=== PATIENT | female | born 1975 | race Caucasian/White ===

== ENCOUNTER 2022-06-26 17:22 | Emergency (ER) | payer OTHER ==
[~2022-06-26] VITALS: Ht 188 cm; Wt 104.3 kg
[~2022-06-26 17:22] MED LIST: HYDACE5 PO; IBUP800 PO; RXHYDACE PO
[2022-06-26] MEDS ORDERED: MECL25 (17:57)
[2022-06-26] MEDS ORDERED: IBUP600 PO (17:57)
[2022-06-26] MEDS ORDERED: CEPH500 PO (20:36)
== END 2022-06-26 20:56 | disposition home or self-care (01) ==
LOC: ER 17:22
DX: L02.11 Cutaneous abscess of neck (principal); Z88.5 Allergy status to narcotic agent; Z91.040 Latex allergy status; Z91.014 Allergy to mammalian meats; Z79.899 Other long term (current) drug therapy
CPT/HCPCS: 36415; 70491; A9270; Q9967

== ENCOUNTER 2022-06-30 10:38 | Emergency (ER) | payer OTHER ==
[~2022-06-30] VITALS: Ht 182.9 cm; Wt 104.3 kg
[~2022-06-30 10:38] MED LIST changes: +CEPH500 PO; +IBUP600 PO; +MECL25
[2022-06-30 13:33] LABS: BASOPHILS ABSOLUTE AUTO 0.04 K/mm3 (0.00-0.23); BASOPHILS PERCENT AUTO 0 % (0-2); EOSINOPHILS ABSOLUTE AUTO 0.34 K/mm3 (0.00-0.68); EOSINOPHILS PERCENT AUTO 3 % (0-6); Hematocrit 39.5 % (33.0-51.0); Hemoglobin 13.5 g/dL (11.5-16.0); IMMATURE GRAN ABSOLUTE AUTO 0.05 K/mm3 (0.00-0.10); IMMATURE GRAN PERCENT AUTO 1 % (0-1); LYMPHOCYTES PERCENT AUTO 13 % (21-46); MONOCYTES ABSOLUTE AUTO 0.84 K/mm3 (0.16-1.47); MONOCYTES PERCENT AUTO 8 % (4-13); Mean Corpuscular HGB Conc 34.2 g/dL (31.5-36.5); Mean Corpuscular Volume 91 fL (80-100); Mean Platelet Volume 9.5 fL (9.1-12.4); NEUTROPHILS ABSOLUTE AUTO 8.09 K/mm3 (1.96-9.15); NEUTROPHILS PERCENT AUTO 75 % (41-73); Platelet Count 340 K/mm3 (150-400); RDW Coefficient Variation 12.8 % (11.7-14.2); RDW Standard Deviation 42.5 fL (35.1-46.3); Red Blood Cell Count 4.36 M/mm3 (3.80-5.20); White Blood Cell Count 10.76 K/mm3 (4.00-11.30)
[2022-06-30 13:50] LABS: Albumin, Blood 3.5 g/dL (3.4-5.0); Albumin/Globulin Ratio 0.9 (0.8-1.8); Bilirubin, Total 0.6 mg/dL (0.1-1.0); Bun/Creatinine Ratio 17.3 (12.0-20.0); Calcium, Blood 8.7 mg/dL (8.5-10.1); Creatinine, Blood 0.58 mg/dL (0.40-1.00); Potassium, Blood 3.7 mmol/L (3.5-5.5); Total Protein, Blood 7.5 g/dL (6.4-8.2)
[2022-06-30] MEDS ORDERED: DOXY100 PO ×2 (15:14)
== END 2022-06-30 15:25 | disposition home or self-care (01) ==
LOC: ER 10:38
PROVIDERS: Physician Assistant
DX: L02.11 Cutaneous abscess of neck (principal); Z88.5 Allergy status to narcotic agent; Z91.018 Allergy to other foods; Z91.040 Latex allergy status
CPT/HCPCS: 36415; 80053; 84484; 85025; 93005; 93010; A9270; J1885